=== PATIENT | male | born 1985 | race Caucasian/White ===

== ENCOUNTER 2022-07-14 09:50 | Outpatient (CLI) | payer OTHER ==
[~2022-07-14 09:50] MED LIST: GADOBUTROL 10 MMOL/10 ML VIAL ONE
[2022-07-14] MEDS ORDERED: GADOBUTROL 10 MMOL/10 ML VIAL IVP ONE (10:43)
--- NOTE | 2022-07-16 10:14 | MRI Report ---
PROCEDURE: LUMBAR SPINE W/WO INDICATIONS: LOW BACK PAIN CONTRAST: GADAVIST 7.9 ML TECHNIQUE: Noncontrast sagittal T1 spin echo and T2 fast spin echo, sagittal STIR, axial T1 and T2 fast spin ech o through the lumbar spine. In cases with scoliosis, additional coronal T2 fast spin echo may be per formed. After the administration of contrast, sagittal and axial T1 spin echo with fat saturation th rough the lumbar spine. COMPARISON: None FINDINGS: Image quality: Excellent. Alignment and curvature: There is normal bony alignment. Marrow: Marrow is of normal overall signal. No acute vertebral body compression fractures. No susp icious marrow enhancement. Spinal cord: Conus medullaris terminates at the L1 level. Visualized spinal cord demonstrates ke l signal, without suspicious enhancement. Paraspinous soft tissues: No paravertebral masses or abnormal enhancement. T12-L1: Normal in appearance. L1-L2: Normal in appearance. L2-L3: Normal in appearance. L3-L4: Normal in appearance. L4-L5: Normal in appearance. L5-S1: Remote right hemilaminectomy. There is either recurrent or residual central posterior and ri ght paracentral disc protrusion. There is mild posterior displacement of the right S1 nerve in the ri ght lateral recess. There is some perineural enhancement from previous surgery in the region of the r ight S1 nerve root. Mild to moderate bilateral foraminal narrowing. IMPRESSION: There has been remote right hemilaminectomy. There is either recurrent or residual central posterior and right paracentral disc protrusion. There is mild posterior displacement of the right S1 nerve rob t in the right lateral recess. Comment: Should prior films become available, they can be reviewed at that time, and an addendum can be made to this dictation. Reviewed by: Manuel Arrington MD on 07/16/2022 10:12 AM PDT Approved by: Manuel Arrington MD on 07/16/2022 10:12 AM PDT Station ID: [id number]
== END 2022-07-14 09:51 | disposition home or self-care (01) ==
LOC: DI 09:50
PROVIDERS: ATTEND Physician Assistant
DX: M51.16 Intervertebral disc disorders with radiculopathy, lumbar region (principal)
CPT/HCPCS: 72158; A9585

== ENCOUNTER 2023-02-23 06:53 | Outpatient (CLI) | payer OTHER ==
--- NOTE | 2023-02-25 14:29 | MRI Report ---
PROCEDURE: ANKLE WO - RT INDICATIONS: ACHILLES TENDINITIS, RIGHT LEG TECHNIQUE: Noncontrast sagittal T1 spin echo and T2 fast spin echo with fat saturation, axial proton density fas t spin echo and T2 fast spin echo with fat saturation, coronal T1 spin echo and T2 fast spin echo wit h fat saturation through the ankle/hindfoot. COMPARISON: None. FINDINGS: Image quality: Excellent. Bones and joints: No bone marrow contusions or fractures. No hindfoot coalitions. No osteochondral injuries of the talar dome. Tiny plantar and dorsal calcaneal enthesophytes are seen. No pathologic joint effusions. Medial structures: The posterior tibialis, flexor digitorum longus, and flexor hallucis longus tendo ns are intact. The posterior tibial neurovascular bundle appears normal within the tarsal tunnel, wi thout extrinsic mass effect. The deep layer (anterior and posterior tibiotalar ligaments) and superf icial layer (tibionavicular, tibiospring, and tibiocalcaneal ligaments) of the deltoid ligament appea r normal. The spring ligament components (superomedial calcaneonavicular, medioplantar oblique calca neonavicular, and inferoplantar longitudinal ligaments) are intact. Lateral structures: The anterior talofibular, calcaneofibular, and posterior talofibular ligaments a ppear intact. More superiorly, the anterior and posterior tibiofibular ligaments appear normal, as i s the intermalleolar ligament. The tibiofibular syndesmosis is normal in width at 2 mm or less. The peroneus longus and brevis tendons thickened with small amount of fluid distending tendon sheath at the level of lateral malleolus extending to the level of calcaneocuboid joint.. Adjacent bony perone al tubercle and retrotrochlear prominence are normal in size. The sinus tarsi demonstrates normal fa tty signal, without edema, fibrosis, or cyst formation. Visualized sinus tarsi components (cervical ligament, interosseous talocalcaneal ligament, roots of the inferior extensor retinaculum) appear nor mal. Anterior structures: The tibialis anterior, extensor hallucis longus, and extensor digitorum longus tendons appear intact. Posterior and plantar structures: Thickened distal 5 cm segment of Achilles tendon is seen extending to its posterior calcaneal insertion with mild adjacent soft tissue edema and subtle intrasubstance T 2 hyperintense signal. Medial and lateral bands of the plantar fascia are of normal thickness. No ab ductor digiti quinti muscle atrophy to suggest Donaldson neuropathy. IMPRESSION: 1. No marrow edema. No fracture or dislocation. No gross osteochondral injuries of talar dome. Small plantar and dorsal calcaneal enthesophytes. 2. Tendinosis involving distal 5 cm segment of Achilles tendon. No Achilles tendon rupture. 3. Low-grade tenosynovitis involving peroneus tendons at the level of lateral malleolus extending to the level of calcaneocuboid joint. 4. Rest of the ankle tendons and ligaments are intact. Reviewed by: Elgin Lino MD on 02/25/2023 2:28 PM PST Approved by: Elgin Lino MD on 02/25/2023 2:28 PM PST Station ID: [id number]
== END 2023-02-23 06:54 | disposition home or self-care (01) ==
LOC: DI 06:53
PROVIDERS: ATTEND Podiatrist
DX: M76.61 Achilles tendinitis, right leg (principal); M77.31 Calcaneal spur, right foot; M77.8 Other enthesopathies, not elsewhere classified; M65.9 Synovitis and tenosynovitis, unspecified